=== PATIENT | male | born 1935 | race Caucasian/White ===

== ENCOUNTER 2017-12-11 06:18 | Day surgery (SDC) | payer MEDICARE, OTHER ==
[~2017-12-11 06:18] MED LIST: Lactated Ringers 1,000 ML IV SCH
[2017-12-11] MEDS ORDERED: Propofol 200 MG/20 ML SDV ONE (07:36)
[2017-12-11] MEDS ORDERED: fentaNYL 100 MCG/2 ML SDV ONE (07:36)
--- NOTE | 2017-12-11 08:48 | OR ---
PREOPERATIVE DIAGNOSIS: History of polyps. POSTOPERATIVE DIAGNOSIS: Sigmoid diverticulosis, otherwise normal exam. PROCEDURE PROPOSED: Total flexible colonoscopy. PROCEDURE DONE: Total flexible colonoscopy. INDICATION: This is an 82-year-old gentleman, who was referred for colonoscopy due to personal history of polyps. He was last colonoscoped 5 years ago and was found to have 2 polyps. He denies any family history of colon pathology. TECHNIQUE: The patient was brought to the endoscopy suite, placed in left lateral decubitus position. He was sedated per [employer] with propofol. The flexible video colonoscope was then passed transanally and under visualization advanced to the cecum. Examination revealed a normal ascending, transverse, and descending colon. The sigmoid colon revealed moderate diverticulosis and the rectum was normal. There was no evidence of any polyps or colitis or other abnormalities. The scope was then withdrawn. The patient tolerated the procedure well. FINAL IMPRESSION: 1. Sigmoid diverticulosis, otherwise normal exam. 2. History of prior polyps. PLAN: At his age of 82, I feel that he no longer needs any future colonoscopies. SCM: 12/11/2017 08:12:41 MODL: 12/11/2017 08:37:33 /[id number]
== END 2017-12-11 09:38 | disposition home or self-care (01) ==
LOC: VM.SDS 06:18
PROVIDERS: ATTEND Surgery
DX: Z12.11 Encounter for screening for malignant neoplasm of colon (principal); K57.30 Diverticulosis of large intestine without perforation or abscess without bleeding; E11.9 Type 2 diabetes mellitus without complications; M48.02 Spinal stenosis, cervical region; N52.9 Male erectile dysfunction, unspecified; M48.061 Spinal stenosis, lumbar region without neurogenic claudication; F17.210 Nicotine dependence, cigarettes, uncomplicated; Z79.82 Long term (current) use of aspirin; Z79.84 Long term (current) use of oral hypoglycemic drugs; Z79.899 Other long term (current) drug therapy; Z98.890 Other specified postprocedural states; Z86.010 Personal history of colon polyps
CPT/HCPCS: G0121; J2704; J3010; J7120

== ENCOUNTER 2021-11-21 08:10 | Emergency (ER) | payer MEDICARE, OTHER ==
[2021-11-21] MEDS ORDERED: Sodium Chloride 0.9% 10 ML Syringe FLUSH PRN (08:34)
[2021-11-21] MEDS ORDERED: Ondansetron 4 MG/2 ML SDV IVPUSH PRN (08:37)
[2021-11-21] MEDS ORDERED: Sodium Chloride 0.9% 1,000 ML IV SCH (08:45)
[2021-11-21 09:09] LABS: ANION GAP 13.8 mmol/L (5-15)
[2021-11-21] MEDS ORDERED: Iopamidol 612 MG/ML 100 ML Bottle IVPUSH ONE (10:21)
[2021-11-21] MEDS ORDERED: Metoclopramide 10 MG/2 ML SDV IVPUSH ONE (11:36)
[2021-11-21] MEDS ORDERED: Piperacillin/Tazobactam 3.375 GM in Sodium Chloride 0.9% 100 ML IV SCH (11:45)
[2021-11-21] MEDS ORDERED: Morphine 2 MG/ML SYRINGE IVPUSH PRN (12:38)
== END 2021-11-21 14:02 | disposition short-term general hospital (02) ==
LOC: VM.ED 08:10 → SUPCPDRO 08:10 → VM.ED 14:02
DX: K56.609 Unspecified intestinal obstruction, unspecified as to partial versus complete obstruction (principal); E11.9 Type 2 diabetes mellitus without complications; Z79.84 Long term (current) use of oral hypoglycemic drugs; Z20.822 Contact with and (suspected) exposure to COVID-19
CPT/HCPCS: 74177; 80053; 81001; 83735; 85025; 96361; 96365; 96375; 99285; J2270; J2405; J2543; J2765; J7030; Q9967; U0002; 99284

== ENCOUNTER 2025-01-24 22:07 | Emergency (ER) | payer MEDICARE, OTHER ==
[2025-01-24 22:48] LABS: BASOPHILS ABSOLUTE AUTO 0.0 x10^3/uL (0.0-0.2); BASOPHILS PERCENT AUTO 0.6 % (0.2-1.2); EOSINOPHILS ABSOLUTE AUTO 0.2 x10^3/uL (0.0-0.5); EOSINOPHILS PERCENT AUTO 2.9 % (0.0-4.0); IMMATURE GRAN ABSOLUTE AUTO 0.01 x10^3/uL (0.00-0.07); IMMATURE GRAN PERCENT AUTO 0.20 % (0.00-0.43); LYMPHOCYTES ABSOLUTE AUTO 2.1 x10^3/uL (1.0-4.8); LYMPHOCYTES PERCENT AUTO 31.8 % (25.0-50.0); MONOCYTES ABSOLUTE AUTO 0.5 x10^3/uL (0.0-0.8); MONOCYTES PERCENT AUTO 7.4 % (2.0-11.0); NEUTROPHILS ABSOLUTE AUTO 3.7 x10^3/uL (1.8-7.7); NEUTROPHILS PERCENT AUTO 57.1 % (50.0-80.0); PLATELET COUNT,PLT 175 x10^3/uL (130-400); RED BLOOD CELL COUNT 4.20 x10^6/uL (4.5-6.0); WHITE BLOOD CELL COUNT,WBC 6.5 x10^3/uL (4.0-10.0)
[2025-01-24 23:04] LABS: A/G RATIO 1.1; ALANINE AMINOTRANSFERASE,ALT 28.0 U/L (16-63); ASPARTATE AMNIOTRANSFERASE,AST 25.0 U/L (15-37); BILIRUBIN TOTAL 0.6 mg/dL (0.2-1.0); BLOOD UREA NITROGEN,BUN 12.0 mg/dL (7-18); CARBON DIOXIDE,CO2 30.0 mmol/L (21-32); CHLORIDE,CL 99.0 mmol/L (98-107); CREATININE 1.0 mg/dL (0.70-1.30); EST CRCL DRUG DOSING (CG) 54.38 mL/min; ETHANOL BLOOD MEDICAL 212.0 mg/dL (0-3); GLUCOSE RANDOM 142.0 mg/dL (70-99); POTASSIUM,K 5.4 mmol/L (3.5-5.1); PROTEIN TOTAL,TP 6.5 g/dL (6.4-8.2); SODIUM,NA 135.0 mmol/L (136-145)
[2025-01-24 23:05] LABS: ESTIMATED GFR 72.0 mL/min (>=60)
[2025-01-24] MEDS: Lactated Ringers 1,000 ML IV ONE (23:15)
== END 2025-01-25 00:08 | disposition home or self-care (01) ==
LOC: VM.ED 22:07
DX: E87.5 Hyperkalemia (principal); E87.1 Hypo-osmolality and hyponatremia; F10.120 Alcohol abuse with intoxication, uncomplicated; E11.9 Type 2 diabetes mellitus without complications; Z79.899 Other long term (current) drug therapy; Z79.82 Long term (current) use of aspirin; Z90.49 Acquired absence of other specified parts of digestive tract
CPT/HCPCS: 36415; 80053; 80307; 85025; 96360; 99284; J7120